=== PATIENT | male | born 1970 | race Caucasian/White ===

== ENCOUNTER 2022-08-15 21:26 | Emergency (ER) | payer SELFPAY ==
[~2022-08-15] VITALS: Ht 167.6 cm; Wt 68.0 kg
[2022-08-16 00:41] VITALS: BP 123/84
== END 2022-08-16 00:42 | disposition home or self-care (01) ==
LOC: ER 21:50
DX: S00.11XA Contusion of right eyelid and periocular area, initial encounter (principal); R07.89 Other chest pain; Y08.89XA Assault by other specified means, initial encounter; Y93.89 Activity, other specified; Y92.89 Other specified places as the place of occurrence of the external cause; Y99.8 Other external cause status
CPT/HCPCS: 99283